=== PATIENT | female | born 1935 | race Hispanic/Latino ===

== ENCOUNTER 2020-12-22 15:51 | Emergency (ER) | payer MEDICARE ==
[~2020-12-22] VITALS: Ht 152.4 cm; Wt 76.2 kg
[2020-12-22 18:14] LABS: BASOPHILS % 0.2 % (0.0-1.0); EOSINOPHILS # (AUTO) 0.3 (0.0-0.4); EOSINOPHILS % 6.5 % (0.0-6.0); HEMATOCRIT 28.3 % (34.2-44.1); HEMOGLOBIN 9.1 g/dL (12.0-16.0); LYMPHOCYTES # (AUTO) 1.1 (1.0-3.2); LYMPHOCYTES % 22.1 % (18.0-39.1); MEAN CORPUSCULAR HEMOGLOBIN 33.2 pg (28-32); MEAN CORPUSCULAR HGB CONC 32.2 g/dL (31-35); MEAN CORPUSCULAR VOLUME 103.3 fL (81-99); MONOCYTES # (AUTO) 0.6 (0.2-0.8); MONOCYTES % 12.9 % (4.4-11.3); NEUTROPHILS # (AUTO) 2.8 (2.1-6.9); NEUTROPHILS % 57.9 % (38.7-80.0); PLATELET COUNT 145 x10e3/uL (140-360); RED BLOOD COUNT 2.74 x10e6/uL (3.6-5.1); RED CELL DISTRIBUTION WIDTH 14.9 % (11.7-14.4)
[2020-12-22 18:35] LABS: INR 1.29; PROTHROMBIN TIME 16.3 seconds (11.9-14.5)
[2020-12-22 18:42] LABS: PARTIAL THROMBOPLASTIN TIME 35.2 seconds (23.8-35.5)
[2020-12-22 18:47] LABS: AMYLASE 95 U/L (25-125); LIPASE 72 U/L (8-78)
[2020-12-22 18:51] LABS: ALBUMIN 2.6 g/dL (3.5-5.0); ALBUMIN/GLOBULIN RATIO 0.6 (0.8-2.0); ANION GAP 11.2 mmol/L (8-16); CALCIUM 8.5 mg/dL (8.4-10.2); CREATININE, SERUM 1.42 mg/dL (0.57-1.11); POTASSIUM 5.2 mmol/L (3.5-5.1)
== END 2020-12-22 20:00 | disposition home or self-care (01) ==
LOC: ER 17:27
DX: R18.8 Other ascites (principal); K74.60 Unspecified cirrhosis of liver; I10 Essential (primary) hypertension; E11.65 Type 2 diabetes mellitus with hyperglycemia
CPT/HCPCS: 36415; 74022; 80053; 82150; 83690; 85025; 85610; 85730; 99283

== ENCOUNTER 2021-04-24 12:32 | Inpatient (IN) | payer MEDICARE ==
[~2021-04-24] VITALS: Ht 152.4 cm; Wt 76.2 kg
[2021-04-24] MEDS ORDERED: SODIUM CHLORIDE 0.9% 1000ML 1,000 ML IV STA (12:58)
[2021-04-24 13:12] LABS: BASOPHILS % 0.3 % (0.0-1.0); EOSINOPHILS # (AUTO) 0.1 (0.0-0.4); EOSINOPHILS % 1.8 % (0.0-6.0); HEMATOCRIT 30.3 % (34.2-44.1); HEMOGLOBIN 9.6 g/dL (12.0-16.0); LYMPHOCYTES # (AUTO) 0.8 (1.0-3.2); LYMPHOCYTES % 13.4 % (18.0-39.1); MEAN CORPUSCULAR HEMOGLOBIN 32.4 pg (28-32); MEAN CORPUSCULAR HGB CONC 31.7 g/dL (31-35); MEAN CORPUSCULAR VOLUME 102.4 fL (81-99); MONOCYTES # (AUTO) 0.5 (0.2-0.8); MONOCYTES % 8.5 % (4.4-11.3); NEUTROPHILS # (AUTO) 4.5 (2.1-6.9); NEUTROPHILS % 75.5 % (38.7-80.0); PLATELET COUNT 167 x10e3/uL (140-360); RED BLOOD COUNT 2.96 x10e6/uL (3.6-5.1); RED CELL DISTRIBUTION WIDTH 15.1 % (11.7-14.4)
[2021-04-24] MEDS ORDERED: SODIUM CHLORIDE 0.9% 1000ML 1,000 ML ONE (13:15)
[2021-04-24 13:16] LABS: INR 1.26; PROTHROMBIN TIME 16.6 seconds (11.9-14.5)
[2021-04-24 13:17] LABS: PARTIAL THROMBOPLASTIN TIME 36.5 seconds (23.8-35.5)
[2021-04-24 13:25] LABS: ALBUMIN 2.2 g/dL (3.5-5.0); ALBUMIN/GLOBULIN RATIO 0.5 (0.8-2.0); ANION GAP 14.7 mmol/L (8-16); CALCIUM 8.3 mg/dL (8.4-10.2); CREATININE, SERUM 1.84 mg/dL (0.57-1.11); POTASSIUM 3.7 mmol/L (3.5-5.1)
[2021-04-24 13:31] LABS: CREATINE KINASE MB 3.1 ng/mL (0-5.0)
[2021-04-24] MEDS ORDERED: SODIUM CHLORIDE 0.9% 1000ML 1,000 ML IV SCH ×2 (14:30→15:30)
[2021-04-24] MEDS: SODIUM CHLORIDE 0.9% 1000ML 1,000 ML IV SCH ×2 (16:04→23:30)
[2021-04-24] MEDS ORDERED: SUCRALFATE1 GM PO (16:47)
[2021-04-24] MEDS ORDERED: LISINOPRIL10 MG PO (16:47)
[2021-04-24] MEDS ORDERED: PANTOPRAZOLE SO40 MG PO (16:50)
[2021-04-24] MEDS ORDERED: CARVEDILOL3.125 MG PO (16:50)
[2021-04-24] MEDS ORDERED: FUROSEMIDE20 MG PO (16:50)
[2021-04-24] MEDS ORDERED: LACTULOSE10 GM/151 PO (16:50)
[2021-04-24 20:59] LABS: CREATINE KINASE MB 4.2 ng/mL (0-5.0)
[2021-04-24] MEDS ORDERED: ACETAMINOPHEN 325 MG TAB PO PRN (22:30)
[2021-04-24] MEDS ORDERED: ONDANSETRON HCL INJ 2MG/ML 2ML 2 MG/ML VIAL IV PRN (22:30)
[2021-04-24] MEDS ORDERED: HYDRALAZINE HCL 20 MG/ML VIAL IV PRN (22:30)
[2021-04-24] MEDS: CEFTRIAXONE 1 GM in SODIUM CHLORIDE 0.9% 50ML 50 ML IV SCH (22:30)
[2021-04-24] MEDS ORDERED: LACTULOSE SYRUP 20 GM/30 ML UDC PO PRN (22:30)
[2021-04-25 00:12] LABS: CREATINE KINASE MB 5.1 ng/mL (0-5.0)
[2021-04-25 06:18] LABS: BASOPHILS % 0.2 % (0.0-1.0); EOSINOPHILS # (AUTO) 0.2 (0.0-0.4); EOSINOPHILS % 3.6 % (0.0-6.0); HEMATOCRIT 27.9 % (34.2-44.1); HEMOGLOBIN 8.7 g/dL (12.0-16.0); LYMPHOCYTES # (AUTO) 0.8 (1.0-3.2); LYMPHOCYTES % 14.1 % (18.0-39.1); MEAN CORPUSCULAR HEMOGLOBIN 32.1 pg (28-32); MEAN CORPUSCULAR HGB CONC 31.2 g/dL (31-35); MONOCYTES # (AUTO) 0.6 (0.2-0.8); MONOCYTES % 10.2 % (4.4-11.3); NEUTROPHILS # (AUTO) 4.1 (2.1-6.9); NEUTROPHILS % 71.4 % (38.7-80.0); PLATELET COUNT 134 x10e3/uL (140-360); RED BLOOD COUNT 2.71 x10e6/uL (3.6-5.1); RED CELL DISTRIBUTION WIDTH 15.2 % (11.7-14.4)
[2021-04-25 06:47] LABS: ALBUMIN 1.9 g/dL (3.5-5.0); ALBUMIN/GLOBULIN RATIO 0.5 (0.8-2.0); ANION GAP 14.2 mmol/L (8-16); CALCIUM 7.5 mg/dL (8.4-10.2); CREATININE, SERUM 1.69 mg/dL (0.57-1.11); POTASSIUM 3.2 mmol/L (3.5-5.1)
[2021-04-25 06:48] LABS: CREATINE KINASE MB 5.6 ng/mL (0-5.0)
[2021-04-25 06:57] LABS: MAGNESIUM 1.4 MG/DL (1.3-2.1); PHOSPHORUS 3.7 MG/DL (2.3-4.7)
[2021-04-25] MEDS: PANTOPRAZOLE SOD 40 MG TABEC PO SCH (08:19)
[2021-04-25] MEDS: SODIUM CHLORIDE 0.9% 1000ML 1,000 ML IV SCH ×3 (08:19→23:11)
[2021-04-25] MEDS: MULTIVITAMINS/MINERALS TAB PO SCH (08:19)
[2021-04-25] MEDS: CEFTRIAXONE 1 GM in SODIUM CHLORIDE 0.9% 50ML 50 ML IV SCH (08:19)
[2021-04-25 15:51] VITALS: BP 99/44
[2021-04-25 16:07] VITALS: BP 99/44
[2021-04-25] MEDS: VANCOMYCIN HCL 125 MG CAPSULE PO SCH ×2 (17:02→23:59)
[2021-04-25 20:00] VITALS: BP 99/53
[2021-04-25] MEDS ORDERED: METRONIDAZOLE 500MG/NS 100ML 100 ML IV SCH (22:00)
[2021-04-25 23:57] VITALS: BP 106/45
[2021-04-26 04:00] VITALS: BP 109/70
[2021-04-26] MEDS: VANCOMYCIN HCL 125 MG CAPSULE PO SCH ×3 (05:17→17:45)
[2021-04-26 08:00] VITALS: BP 103/50
[2021-04-26] MEDS ORDERED: ALBUMIN 25% 25GM 100ML 0.25 GM/ML BTL IV ONE (08:15)
[2021-04-26] MEDS ORDERED: ALBUMIN 25% 12.5GM 50ML 200 ML IV ONE (09:00)
[2021-04-26 10:41] VITALS: BP 103/50
[2021-04-26] MEDS ORDERED: SODIUM CHLORIDE 0.9% 100 ML ONE (10:54)
[2021-04-26] MEDS: CEFTRIAXONE 1 GM in SODIUM CHLORIDE 0.9% 50ML 50 ML IV SCH (11:38)
[2021-04-26] MEDS: PANTOPRAZOLE SOD 40 MG TABEC PO SCH (11:38)
[2021-04-26] MEDS: SODIUM CHLORIDE 0.9% 1000ML 1,000 ML IV SCH ×2 (11:38→23:16)
[2021-04-26] MEDS: MULTIVITAMINS/MINERALS TAB PO SCH (11:38)
[2021-04-26 13:30] VITALS: BP 84/44
[2021-04-26] MEDS ORDERED: SODIUM CHLORIDE 0.9% 250ML 250 ML ONE (14:41)
[2021-04-26] MEDS ORDERED: ALBUMIN 25% 12.5GM 50ML 100 ML IV ONE (14:58)
[2021-04-26 15:16] LABS: BODY FLUID TYPE PERITONEAL
[2021-04-26 15:17] LABS: BODY FLUID APPEARANCE SL.CLOUDY; BODY FLUID COLOR YELLOW
[2021-04-26] MEDS ORDERED: ALBUMIN 25% 12.5GM 50ML 50 ML IV ONE (15:28)
[2021-04-26 15:46] LABS: RBC,BODY FLUID < 2000 cells/uL; WBC,BODY FLUID 210 cells/uL
[2021-04-26 16:15] LABS: LYMPHOCYTES,BODY FLUID 31 %; MONO/MACROPHG,BODY FLUID 37 %; NEUTROPHILS,BODY FLUID 32 %
[2021-04-26 16:43] VITALS: BP 91/40
[2021-04-26 20:00] VITALS: BP 95/53
[2021-04-27] VITALS (8 sets, daily range): BP systolic 83–106; BP diastolic 44–57
[2021-04-27] MEDS: VANCOMYCIN HCL 125 MG CAPSULE PO SCH ×4 (05:22→17:51)
[2021-04-27] MEDS: PANTOPRAZOLE SOD 40 MG TABEC PO SCH (08:20)
[2021-04-27] MEDS: MULTIVITAMINS/MINERALS TAB PO SCH (09:43)
[2021-04-27] MEDS: CEFTRIAXONE 1 GM in SODIUM CHLORIDE 0.9% 50ML 50 ML IV SCH (09:43)
[2021-04-27] MEDS: SODIUM CHLORIDE 0.9% 1000ML 1,000 ML IV SCH (15:56)
[2021-04-28] VITALS (9 sets, daily range): BP systolic 58–166; BP diastolic 45–71
[2021-04-28] MEDS: VANCOMYCIN HCL 125 MG CAPSULE PO SCH ×4 (05:50→17:53)
[2021-04-28] MEDS: PANTOPRAZOLE SOD 40 MG TABEC PO SCH (07:30)
[2021-04-28] MEDS: CEFTRIAXONE 1 GM in SODIUM CHLORIDE 0.9% 50ML 50 ML IV SCH (08:44)
[2021-04-28] MEDS: MULTIVITAMINS/MINERALS TAB PO SCH (08:44)
[2021-04-28] MEDS: CARVEDILOL 3.125 MG TAB PO SCH ×2 (10:45→17:15)
[2021-04-28 11:02] LABS: BASOPHILS % 0.6 % (0.0-1.0); EOSINOPHILS # (AUTO) 0.2 (0.0-0.4); EOSINOPHILS % 5.4 % (0.0-6.0); HEMATOCRIT 26.4 % (34.2-44.1); HEMOGLOBIN 8.2 g/dL (12.0-16.0); LYMPHOCYTES # (AUTO) 0.7 (1.0-3.2); LYMPHOCYTES % 19.8 % (18.0-39.1); MEAN CORPUSCULAR HEMOGLOBIN 32.7 pg (28-32); MEAN CORPUSCULAR HGB CONC 31.1 g/dL (31-35); MEAN CORPUSCULAR VOLUME 105.2 fL (81-99); MONOCYTES # (AUTO) 0.4 (0.2-0.8); MONOCYTES % 11.3 % (4.4-11.3); NEUTROPHILS # (AUTO) 2.2 (2.1-6.9); NEUTROPHILS % 62.3 % (38.7-80.0); PLATELET COUNT 119 x10e3/uL (140-360); RED BLOOD COUNT 2.51 x10e6/uL (3.6-5.1); RED CELL DISTRIBUTION WIDTH 15.4 % (11.7-14.4)
[2021-04-28 11:17] LABS: ANION GAP 9.8 mmol/L (8-16); CALCIUM 7.5 mg/dL (8.4-10.2); CREATININE, SERUM 1.45 mg/dL (0.57-1.11)
[2021-04-28 11:34] LABS: POTASSIUM 2.8 mmol/L (3.5-5.1)
[2021-04-28] MEDS ORDERED: POTASSIUM CHLORIDE 20 MEQ TAB CR PO NR ×2 (12:15→14:15)
[2021-04-28] MEDS: SODIUM CHLORIDE 0.9% 1000ML 1,000 ML IV SCH (14:30)
[2021-04-28] MEDS ORDERED: CITRIC ACID/SODIUM CITRATE 30 ML UDC PO ONE (17:00)
[2021-04-29] MEDS: VANCOMYCIN HCL 125 MG CAPSULE PO SCH ×3 (00:42→12:20)
[2021-04-29] MEDS: SODIUM CHLORIDE 0.9% 1000ML 1,000 ML IV SCH (00:53)
[2021-04-29 04:47] VITALS: BP 135/62
[2021-04-29 08:15] VITALS: BP 142/57
[2021-04-29 08:20] VITALS: BP 142/57
[2021-04-29] MEDS: PANTOPRAZOLE SOD 40 MG TABEC PO SCH (08:30)
[2021-04-29] MEDS: CARVEDILOL 3.125 MG TAB PO SCH (09:00)
[2021-04-29] MEDS: MULTIVITAMINS/MINERALS TAB PO SCH (09:25)
[2021-04-29 12:12] VITALS: BP 123/64
[2021-04-29] MEDS ORDERED: AUGMENTIN 500-1 EACH PO (15:32)
[2021-04-29] MEDS ORDERED: ALDACTONE25 MG PO (15:45)
[2021-04-29 16:17] VITALS: BP 112/61
== END 2021-04-29 16:32 | disposition home or self-care (01) | DRG 432 ==
LOC: ER 12:57 → ERHOLD 15:48 → MED/SURG3 04-25 13:30
PROVIDERS: ADMIT Internal Medicine; ATTEND Internal Medicine
PROC: 0W9G3ZZ Drainage of Peritoneal Cavity, Percutaneous Approach (ICD-10-PCS; principal; 2021-04-26)
DX: K74.60 Unspecified cirrhosis of liver (principal); K65.2 Spontaneous bacterial peritonitis; R18.8 Other ascites; N17.9 Acute kidney failure, unspecified; E86.0 Dehydration; E66.9 Obesity, unspecified; Z68.32 Body mass index [BMI] 32.0-32.9, adult; I12.9 Hypertensive chronic kidney disease with stage 1 through stage 4 chronic kidney disease, or unspecified chronic kidney disease; N18.30 Chronic kidney disease, stage 3 unspecified; E88.09 Other disorders of plasma-protein metabolism, not elsewhere classified; D63.8 Anemia in other chronic diseases classified elsewhere; R19.7 Diarrhea, unspecified; Z20.822 Contact with and (suspected) exposure to COVID-19; E11.9 Type 2 diabetes mellitus without complications
CPT/HCPCS: 36415; 49083; 71045; 74176; 80048; 80053; 82550; 82553; 82948; 83690; 83735; 83880; 84100; 84132; 84157; 84484; 85025; 85610; 85730; 87070; 87205; 87493; 89051; 93005; 94799; 99285; C1729; J0696; J7030; J7050; U0002